=== PATIENT | male | born 1990 | race Caucasian/White ===

== ENCOUNTER 2017-02-22 11:38 | Emergency (ER) | payer OTHER ==
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
[2017-02-22 12:11] VITALS: RESP 16
--- NOTE | 2017-02-22 12:30 | XR ---
EXAMINATION TYPE: XR ankle complete RT DATE OF EXAM: 02/22/2017 COMPARISON: NONE HISTORY: Pain FINDINGS: Three views of the ankle demonstrate the ankle mortise to be intact and symmetric. There is extensive soft tissue swelling laterally with avulsion fracture of the lateral malleolus. IMPRESSION: 1. Extensive soft tissue swelling laterally with tiny bony density which may represent avulsion fract ure of the lateral malleolus or lateral talar eminence.
--- NOTE | 2017-02-22 12:31 | XR ---
EXAMINATION TYPE: XR foot complete RT DATE OF EXAM: 02/22/2017 COMPARISON: NONE HISTORY: Pain TECHNIQUE: Three views are submitted. FINDINGS: The osseous structures are intact and arthropathy of the first MTP joint noted. Soft tissue swelling along the lateral ankle joint. Tiny bony density in the soft tissues. IMPRESSION: 1. Tiny avulsion fracture suspected involving either the lateral talar eminence or lateral malleolus. .
[2017-02-22 13:35] VITALS: BP 124/65; PULSE 60; TEMP 98.4
== END 2017-02-22 13:41 | disposition home or self-care (01) ==
LOC: EC 11:38
DX: S82.61XA Displaced fracture of lateral malleolus of right fibula, initial encounter for closed fracture (principal); F17.200 Nicotine dependence, unspecified, uncomplicated; Z91.030 Bee allergy status; V86.09XA Driver of other special all-terrain or other off-road motor vehicle injured in traffic accident, initial encounter; Y93.55 Activity, bike riding
CPT/HCPCS: 29515; 99283

== ENCOUNTER 2022-06-08 08:56 | Emergency (ER) | payer OTHER ==
[2022-06-08] MEDS ORDERED: MORPHINE SULFATE 4 MG/ML SYRINGE IVP STA (09:21)
[2022-06-08] MEDS ORDERED: SODIUM CHLORIDE 0.9% 1,000 ML IV STA (09:21)
[2022-06-08] MEDS ORDERED: KETOROLAC 15 MG/ML 1 ML VIAL IVP STA (09:21)
[2022-06-08] MEDS ORDERED: ONDANSETRON 4 MG/2 ML VIAL IVP STA (09:21)
[2022-06-08 10:06] LABS: Basophils # (A) 0.1 k/uL (0-0.2); Basophils % (A) 2 %; Eosinophils # (A) 0.3 k/uL (0-0.7); Eosinophils % (A) 6 %; HCT 42.1 % (39.0-53.0); Lymphocytes # (A) 1.3 k/uL (1.0-4.8); Lymphocytes % (A) 25 %; MCH 30.6 pg (25.0-35.0); MCHC 35.6 g/dL (31.0-37.0); MCV 86.1 fL (80.0-100.0); Mean Platelet Volume 8.6; Monocytes # (A) 0.6 k/uL (0-1.0); Monocytes % (A) 11 %; Neutrophils % (A) 54 %; Platelet Count 199 k/uL (150-450); RBC 4.89 m/uL (4.30-5.90); RDW 11.9 % (11.5-15.5); WBC 5.4 k/uL (3.8-10.6)
--- NOTE | 2022-06-08 10:19 | CT ---
EXAMINATION TYPE: CT abdomen pelvis wo con DATE OF EXAM: 06/08/2022 COMPARISON: None HISTORY: LEFT FLANK PAIN CT DLP: 445.2 mGycm Examination of the solid and hollow viscera is limited given the lack of contrast. FINDINGS: LUNG BASES: No evidence for nodule. No evidence for infiltrate. LIVER/GB: The gallbladder is unremarkable. No space-occupying hepatic lesion. PANCREAS: No pancreatic mass identified. No inflammatory process seen. SPLEEN: No evidence for splenomegaly. No intrasplenic lesions seen. ADRENALS: No adrenal nodules identified. No evidence for thickening. KIDNEYS: Recently passed 3 mm calculus resides within the urinary bladder base to the left of midline . There is minimal residual left-sided hydroureteronephrosis. Bilateral renal calculi are noted with 3 calculi seen within the left kidney measuring 3 mm each as well as 5 sub-3 mm calculi right kidney. No renal masses seen. BOWEL: Appendix has a normal appearance. No evidence of bowel obstruction. No inflammatory process. Lymph nodes: No evidence for adenopathy greater than 1 cm. Abdominal aorta: Atheromatous changes seen. No evidence for aneurysm. Genital organs: No significant abnormality. Other: No significant abnormality. IMPRESSION: Recently passed 3 mm calculus resides within the urinary bladder base to the left of midline. There i s minimal residual left-sided hydroureteronephrosis.
[2022-06-08 10:35] LABS: ALT 20 U/L (4-49); AST 22 U/L (17-59); African American GFR (CKD) >90 (>60 ml/min/1.73 sqM); Albumin 4.6 g/dL (3.5-5.0); Alkaline Phosphatase 62 U/L (38-126); Anion Gap 11 mmol/L; Blood Urea Nitrogen 12 mg/dL (9-20); Calcium 9.4 mg/dL (8.4-10.2); Carbon Dioxide 22 mmol/L (22-30); Chloride 106 mmol/L (98-107); Glucose 93 mg/dL (74-99); Non-African American GFR(CKD) >90 (>60 ml/min/1.73 sqM); Potassium 3.9 mmol/L (3.5-5.1); Sodium 139 mmol/L (137-145); Total Protein 7.1 g/dL (6.3-8.2)
[2022-06-08 10:39] VITALS: RESP 18
--- NOTE | 2022-06-08 10:44 | ED ---
General Adult HPI - General Chief complaint: Urogenital Stated complaint: back pain Time Seen by Provider: 06/08/22 09:05 Source: patient, RN notes reviewed, old records reviewed Mode of arrival: ambulatory Limitations: no limitations - History of Present Illness Initial comments: Patient is a 32-year-old male with no pertinent past medical history, presenting to the emergency Department with complaints of acute onset of left flank pain that radiates to his left testicle started about 2 hours prior to arrival. Patient states he has had kidney stones in the past but this feels much more intense than before. His last kidney stones were many years ago. He states yesterday he felt perfectly fine. He denies any hematuria or dysuria. He denies any previous abdominal surgeries. He states he did not take anything for the pain prior to arrival. He is having some nausea as well. Pain or shortness of breath, he has no further complaints. - Related Data Previous Rx's Medication Instructions Recorded EPINEPHrine (Auto Inject) [Epipen] 0.3 mg IM ONCE PRN #1 syringe 04/16/15 Hydrocodone/Acetaminophen [[place] 1 each PO Q6HR PRN #20 tab 02/22/17 5-325] Ibuprofen [Motrin] 600 mg PO Q6HR PRN #40 day 02/22/17 Ketorolac [Toradol] 10 mg PO Q8HR #15 tab 06/08/22 Ondansetron Odt [Zofran Odt] 4 mg PO Q8HR PRN #10 tab 06/08/22 Tamsulosin [Flomax] 0.4 mg PO DAILY #7 cap 06/08/22 Allergies Allergy/AdvReac Type Severity Reaction Status Date / Time venom-honey bee Allergy Swelling Verified 06/08/22 08:59 [bee venom (honey bee)] Review of Systems ROS Statement: Those systems with pertinent positive or pertinent negative responses have been documented in the HPI. ROS Other: All systems not noted in ROS Statement are negative. Past Medical History Past Medical History: No Reported History Additional Past Medical History / Comment(s): back pain and muscle spasms History of Any Multi-Drug Resistant Organisms: None Reported Past Surgical History: No Surgical Hx Reported Past Psychological History: No Psychological Hx Reported Smoking Status: Current every day smoker Past Alcohol Use History: Occasional Past Drug Use History: Marijuana General Exam - General Exam Comments Initial Comments: GENERAL: Patient is well-developed and well-nourished. Patient is nontoxic and in mild acute distress secondary to pain. HEAD: Atraumatic, normocephalic. EYES: Pupils equal round and reactive to light, extraocular movements intact, sclera anicteric, conjunctiva are normal. Eyelids were unremarkable. ENT: Moist mucous membranes. NECK: Normal range of motion, supple without lymphadenopathy or JVD. LUNGS: Unlabored respirations. Breath sounds clear to auscultation bilaterally and equal. No wheezes rales or rhonchi. HEART: Regular rate and rhythm without murmurs, rubs or gallops. ABDOMEN: Soft, left sided CVA tenderness, mild left sided abdominal discomfort, normoactive bowel sounds. No guarding, no rebound. No masses appreciated. : Deferred MUSCULOSKELETAL: Normal extremities with adequate strength and normal range of motion, no pitting or edema. No clubbing or cyanosis. NEUROLOGICAL: Patient is alert and oriented x 3. Normal speech, normal gait. PSYCH: Normal mood, normal affect. SKIN: Warm, Dry, normal turgor, no rashes or lesions noted. Limitations: no limitations Course Vital Signs 06/08/22 06/08/22 08:57 10:30 Temperature 97.5 F L Pulse Rate 72 61 Respiratory 22 18 Rate Blood Pressure 158/81 121/80 O2 Sat by Pulse 100 97 Oximetry Medical Decision Making - Medical Decision Making Patient 32-year-old male here with left-sided flank pain with radiation into the testicle for the past 2 hours. History of kidney stones. Vital stable, afebrile. Patient be evaluated for kidney stones. Laboratory studies are within normal limits. CT of abdomen and pelvis shows a 3 mm stone in the bladder, some mild hydronephrosis, multiple nonobstructing stones in each of the kidneys. Patient was reevaluated after Toradol, fluids and Zofran, much improvement in his symptoms. Discussed these findings with him. Patient will be discharged home with pain control, I will give him urology follow-up. He is agreeable with this plan. Stable for discharge home. Case discussed Dr. Ortiz. - Lab Data Result diagrams: 06/08/22 09:53 06/08/22 09:53 Lab Results 06/08/22 06/08/22 Range/Units 09:53 09:53 WBC 5.4 (3.8-10.6) k/uL RBC 4.89 (4.30-5.90) m/uL Hgb 15.0 (13.0-17.5) gm/dL Hct 42.1 (39.0-53.0) % MCV 86.1 (80.0-100.0) fL MCH 30.6 (25.0-35.0) pg MCHC 35.6 (31.0-37.0) g/dL RDW 11.9 (11.5-15.5) % Plt Count 199 (150-450) k/uL MPV 8.6 Neutrophils % 54 % Lymphocytes % 25 % Monocytes % 11 % Eosinophils % 6 % Basophils % 2 % Neutrophils # 3.0 (1.3-7.7) k/uL Lymphocytes # 1.3 (1.0-4.8) k/uL Monocytes # 0.6 (0-1.0) k/uL Eosinophils # 0.3 (0-0.7) k/uL Basophils # 0.1 (0-0.2) k/uL Sodium 139 (137-145) mmol/L Potassium 3.9 (3.5-5.1) mmol/L Chloride 106 (98-107) mmol/L Carbon Dioxide 22 (22-30) mmol/L Anion Gap 11 mmol/L BUN 12 (9-20) mg/dL Creatinine 0.97 (0.66-1.25) mg/dL Est GFR (CKD-EPI)AfAm >90 (>60 ml/min/1.73 sqM) Est GFR (CKD-EPI)NonAf >90 (>60 ml/min/1.73 sqM) Glucose 93 (74-99) mg/dL Calcium 9.4 (8.4-10.2) mg/dL Total Bilirubin 1.0 (0.2-1.3) mg/dL AST 22 (17-59) U/L ALT 20 (4-49) U/L Alkaline Phosphatase 62 (38-126) U/L Total Protein 7.1 (6.3-8.2) g/dL Albumin 4.6 (3.5-5.0) g/dL Disposition Clinical Impression: Kidney stone on left side Disposition: HOME SELF-CARE Condition: Stable Instructions (If sedation given, give patient instructions): Kidney Stones (ED) Additional Instructions: Please return to the Emergency Department if symptoms worsen or any other concerns. Continue to increase her fluids as this will help pass the stone. May take Toradol and/or Zofran for any additional symptoms. Recommend follow-up with urology. Prescriptions: Tamsulosin [Flomax] 0.4 mg PO DAILY #7 cap Ketorolac [Toradol] 10 mg PO Q8HR #15 tab Ondansetron Odt [Zofran Odt] 4 mg PO Q8HR PRN #10 tab PRN Reason: Nausea Is patient prescribed a controlled substance at d/c from ED?: No Referrals: None,Stated [Primary Care Provider] - 1-2 days Yovany Sykes MD [STAFF PHYSICIAN] - 1-2 days Time of Disposition: 11:32
[2022-06-08 11:43] VITALS: BP 118/79; PULSE 67; TEMP 98
== END 2022-06-08 11:42 | disposition home or self-care (01) ==
LOC: EC 08:56
DX: N20.2 Calculus of kidney with calculus of ureter (principal); F17.200 Nicotine dependence, unspecified, uncomplicated; F12.90 Cannabis use, unspecified, uncomplicated; Z91.030 Bee allergy status
CPT/HCPCS: 80053; 85025; 74176; 99284; 96374; 96375 ×2; 96361; J2270; J2405; J1885; 36415